=== PATIENT | male | born 1995 | race Two or more races ===

== ENCOUNTER 2017-06-09 23:46 | Emergency (ER) | payer SELFPAY ==
[~2017-06-09] VITALS: Ht 175.3 cm; Wt 63.5 kg
--- OUTSIDE RECORDS SUMMARY | 2017-06-10 00:08 | External Medical Summary Rpt | CCD ---
Author Author [facility] Organization [facility] Address Unknown Phone Unavailable Purpose Continuity of Care Document - through 2016
--- OUTSIDE RECORDS SUMMARY | 2017-06-10 00:08 | External Medical Summary Rpt | CCD ---
Demographics Preferred Language [place] Marital Status Unknown Taoist Affiliation Unknown Race Unknown Ethnic Group Unknown Author Author , ZEINAB ARRIOLA Address Unknown Phone Immunization No patient found.
--- OUTSIDE RECORDS SUMMARY | 2017-06-10 00:08 | External Medical Summary Rpt | CCD ---
Author Author , ZEINAB ARRIOLA Address Unknown Phone [email or web address] Purpose Continuity of Care Document - through 2016
--- OUTSIDE RECORDS SUMMARY | 2017-06-10 00:08 | External Medical Summary Rpt | CCD ---
Author Author , ZEINAB ARRIOLA Address Unknown Phone [email or web address] Purpose Continuity of Care Document - through 2016
--- OUTSIDE RECORDS SUMMARY | 2017-06-10 00:08 | External Medical Summary Rpt | CCD ---
Demographics Preferred Language Romanian Marital Status Unknown [employer] Affiliation Unknown Race Unknown Ethnic Group Unknown Author Author , ZEINAB ARRIOLA Address Unknown Phone Immunization No patient found.
[2017-06-10 00:40] LABS: AMPHETAMINES/METAMPHETAMINES NEGATIVE ng/mL (<1000)
--- NOTE | 2017-06-10 00:51 | Emergency Room Report ---
History of Present Illness Time Seen by MD Alvarado Presenting Problem in Triage Pt arrived:Walked Presenting Problem:PT C/O INSOMNIA SXS FOR 'DAYS' ASSOC WITH PALPITATIONS AND TROUBLE CONCENTRATING Onset of symptoms date/time:06/07/17 or onset unknown for: Treatment Prior to Arrival: [employer] Provided by: Sepsis Risk Assessment: Temp: 98.0 B/P: 135/77 MAP: 96 Pulse: 87 Resp: 18 Recent fever? N Clinical Suspician of Infection? N Mental Status: 1 - Regular (Normal Baseline) Sepsis Risk:Low Sepsis Risk Have you (or family members/close friends) recently traveled outside the [place]? N If Yes, where/when: Have you had exposure to infectious disease within the past month? N TB? Other? Specify: Source patient, RN notes reviewed, old records Exam Limitations no limitations Comment pt with feeling of depression but not suicidial and wishes to see pcp Cardiac Chest Pain Chest pain indicative of cardiac No Timing/Duration this evening Severity moderate ALLERGIES Coded Allergies: No Known Allergies (06/09/17) Home Medications Reported Medications No Known Home Medications History Medical History General CAD? No Angina: No VT: No Hypertension? No Hyperlipidemia? No CHF? No DVT? No PE? No COPD? No Asthma? No Anemia? Yes GERD? No Gastric ulcers? No GI Bleed? No Hernia? No Thyroid Problems? No Hypothyroidism? No CVA? No Seizures? No Diabetes? No Renal Insuffiency? No End Stage Renal Disease? No UTI? No Stones? No BPH? No GB Disease: No Nephritic Syndrome? No Asplenia? No Hepatitis? No Sickle Cell Disease? No Arthritis? No Migraines? No Cataracts? No Glaucoma? No MRSA? No HIV? No TB? No Anxiety? No Depression? No Cancer? No More? Yes Additional hx: INSOMNIA CHRONIC BACK PAIN Immunization Hx DT/Tetanus <5YEARS Surgical Hx Previous Surgery?Y PENILE SURGERY AT AGE 7 Social History Smoking Hx Smoker: Never Smoker Tobacco: No Are you/the child exposed to second-hand smoke: No Alcohol Alcohol: No Drugs none Review of Systems All Other Systems Reviewed and Negative Constitutional denies fever Eyes denies drainage ENT denies: ear discharge, epistaxis, throat pain. Respiratory denies cough, denies shortness of breath, denies wheezing Cardiovascular denies chest pain, denies syncope Gastrointestinal denies abdominal pain, denies diarrhea, denies vomiting Genitourinary denies: dysuria, frequency, hesitancy, hematuria. Musculoskeletal denies back pain, denies joint pain, denies joint swelling, denies neck pain Skin denies rash Psychiatric/Neurological see HPI, depressed, denies seizure Physical Exam Vital Signs Vital Signs Date Time Temp Pulse Resp B/P Pulse O2 O2 Flow FiO2 Ox Delivery Rate 06/10 0113 77 18 133/68 100 12 2354 98.0 87 18 135/77 100 - WBC >12,000 or <4,000 or 10% bands? 2 or more SIRS Criteria Met? B/P:133/68 MAP:96 Creatinine >2.0? UA output<0.5ml/kg/hr for 2 hrs? Platelet count >100,000? Lactate >2.0mmol/1? INR >1.2 or PTT > than 60 sec? Evidence of Organ Dysfunction? Provider documented clinical suspician of infection? N Sepsis Criteria Count: 0 Sepsis Risk: Low Sepsis Risk General Appearance no apparent distress Eye Exam - bilateral eye PERRL, bilateral eye EOMI Ear, Nose, Throat normal ENT inspection Neck supple Respiratory Status No: respiratory distress. 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 No Results/Orders Laboratory Tests 06/10/17 0010: Opiates Screen NEGATIVE, Urine Methadone Screen NEGATIVE, Barbiturates NEGATIVE, Phencyclidine Screen NEGATIVE, Amphetamines Screen NEGATIVE, Benzodiazepines Screen NEGATIVE, Cocaine Screen NEGATIVE, Marijuana (THC) Screen NEGATIVE Orders Procedure Date/time Status DRUG ABUSE SCREEN (TRIAGE) 06/10 0013 Complete Departure Departure Time of Disposition 0125 Disposition DC Home or Self Care(routine) Clinical Impression Primary Impression: Depression Qualifiers: Depression Type: unspecified Qualified Code: F32.9 - Major depressive disorder, single episode, unspecified Condition STABLE Referrals [facility] Patient Instructions DI for Depression -- Adult Additional Instructions see pcp for follow up Discharge Counseling Counseled pt/family regarding diagnosis, test results, medications/RX, follow up needs Prescriptions Current Visit Scripts Hydroxyzine Pamoate (Vistaril) 25 MG PO QHS #15 CAP ED Critical Care Critical Care No at 0130
[2017-06-10] MEDS ORDERED: VISTARIL25 MG PO (01:29)
[2017-06-10 01:32] VITALS: BP 133/68
== END 2017-06-10 ==
LOC: ER 23:46
PROVIDERS: Emergency Medicine
DX: F32.9 Major depressive disorder, single episode, unspecified (principal)